=== PATIENT | male | born 1975 | race Caucasian/White ===

== ENCOUNTER 2017-07-30 02:58 | Inpatient (IN) | payer MEDICARE ==
[~2017-07-30] VITALS: Ht 182.9 cm; Wt 78.7 kg
[2017-07-30] MEDS ORDERED: cefTRIAXone 1GM/10ml IVPUSH 10 ML IV ONE (04:15)
[2017-07-30] MEDS ORDERED: SODIUM CHLORIDE 0.9% 1,000 ML IV ONE (04:15)
[2017-07-30 04:34] LABS: Basophils # (auto) 0 uL; Basophils % (auto) 0.6 % (0.0-2.0); Eosinophils # (auto) 0.3 uL; Eosinophils % (auto) 4.1 % (0.0-7.0); Hematocrit 35.9 % (41.0-53.0); Hemoglobin 12.1 g/dL (13.5-17.5); Lymphocytes # (auto) 1.7 uL; Mean Corpuscular Hgb Conc. 33.9 g/dL (32.0-36.0); Mean Corpuscular Volume 82.6 fL (80.0-100.0); Monocytes # (auto) 0.6 uL; Monocytes % (auto) 8.2 % (0.0-12.0); Neutrophils # (auto) 5.2 uL; Neutrophils % (auto) 66.1 % (37.0-80.0); Platelet Count (auto) 327 10^3/uL (140-450); Red Blood Cells 4.34 10^6/uL (4.5-5.90); Red Cell Distribution Width 15.1 % (11.8-14.3); White Blood Cell 7.9 10^3/uL (4.4-10.8)
[2017-07-30 04:52] LABS: Albumin 3.6 g/dL (3.4-5.0); BUN/Creatinine Ratio 22.2; Potassium 3.8 mmol/L (3.5-5.1)
[2017-07-30 04:55] LABS: Bilirubin, Total 0.4 mg/dL (0.2-1.0); Total Protein 7.3 g/dL (6.4-8.2)
[2017-07-30] MEDS ORDERED: CLINDAMYCIN 600MG IV 50 ML IV ONE (07:00)
[2017-07-30] MEDS ORDERED: ONDANSETRON HCL 4 MG/2 ML VIAL IV PRN (07:00)
[2017-07-30] MEDS ORDERED: ACETAMINOPHEN 500 MG TAB PO PRN (07:00)
[2017-07-30] MEDS: cefTRIAXone 1GM/10ml IVPUSH 10 ML IV SCH (10:44)
[2017-07-30 11:08] LABS: Urine Bacteria FEW /hpf (None Seen); Urine Blood Negative /uL (Negative); Urine Specific Gravity 1.017 (1.001-1.035); Urine WBC <1 /hpf (0 - 3)
[2017-07-30 11:16] LABS: Alcohol, Urine < 3.0 mg/dL (0-5); Amphetamine Screen, Urine POSITIVE (NEGATIVE); Barbiturate Scree,Urine NEGATIVE (NEGATIVE); Benzodiazephine Screen, Urine NEGATIVE (NEGATIVE); Cannabinoid Screen, Urine POSITIVE (NEGATIVE); Cocaine Screen, Urine NEGATIVE (NEGATIVE); Opiate Scree,Urine NEGATIVE (NEGATIVE); Phencyclidine Screen, Urine NEGATIVE (NEGATIVE)
[2017-07-30] MEDS: HYDROcodone-ACET 5/325MG TAB PO PRN (15:02)
[2017-07-30] MEDS: CLINDAMYCIN 600MG IV 50 ML IV SCH ×2 (15:02→21:38)
[2017-07-30 16:10] VITALS: BP 136/64
[2017-07-30 22:00] VITALS: BP 118/74
[2017-07-31] MEDS: CLINDAMYCIN 600MG IV 50 ML IV SCH ×3 (05:51→21:26)
[2017-07-31 05:57] VITALS: BP 121/86
[2017-07-31 06:34] LABS: Basophils # (auto) 0 uL; Basophils % (auto) 0.5 % (0.0-2.0); Eosinophils # (auto) 0.3 uL; Eosinophils % (auto) 2.9 % (0.0-7.0); Hematocrit 36.7 % (41.0-53.0); Hemoglobin 12.4 g/dL (13.5-17.5); Lymphocytes # (auto) 1.7 uL; Lymphocytes % (auto) 19.4 % (10.0-50.0); Mean Corpuscular Hemoglobin 28.3 pg (28.0-32.0); Mean Corpuscular Hgb Conc. 33.9 g/dL (32.0-36.0); Mean Corpuscular Volume 83.7 fL (80.0-100.0); Monocytes # (auto) 0.6 uL; Monocytes % (auto) 7.5 % (0.0-12.0); Neutrophils % (auto) 69.7 % (37.0-80.0); Platelet Count (auto) 325 10^3/uL (140-450); Red Blood Cells 4.39 10^6/uL (4.5-5.90); Red Cell Distribution Width 14.5 % (11.8-14.3); White Blood Cell 8.6 10^3/uL (4.4-10.8)
[2017-07-31 06:47] LABS: BUN/Creatinine Ratio 18.4; Potassium 4.6 mmol/L (3.5-5.1)
[2017-07-31] MEDS: HYDROcodone-ACET 5/325MG TAB PO PRN (08:58)
[2017-07-31] MEDS: cefTRIAXone 1GM/10ml IVPUSH 10 ML IV SCH (08:59)
[2017-07-31 09:00] VITALS: BP 124/76
[2017-07-31 13:00] VITALS: BP 123/75
[2017-07-31 17:00] VITALS: BP 109/67
[2017-07-31 22:16] VITALS: BP_SYST 109; BP_SYST 161; BP_DIAS 62; BP_DIAS 81
[2017-08-01] MEDS: HYDROcodone-ACET 5/325MG TAB PO PRN ×3 (02:24→18:31)
[2017-08-01 05:00] VITALS: BP 108/78
[2017-08-01] MEDS: CLINDAMYCIN 600MG IV 50 ML IV SCH ×3 (05:33→21:21)
[2017-08-01 09:00] VITALS: BP 122/60
[2017-08-01] MEDS: cefTRIAXone 1GM/10ml IVPUSH 10 ML IV SCH (09:38)
[2017-08-01] MEDS ORDERED: CLIN1CAP4 PO (11:25)
[2017-08-01 13:00] VITALS: BP 121/74
[2017-08-01 17:00] VITALS: BP 130/62
[2017-08-01 22:00] VITALS: BP 115/78
[2017-08-02 05:09] VITALS: BP 111/75
[2017-08-02] MEDS: CLINDAMYCIN 600MG IV 50 ML IV SCH ×2 (05:41→13:35)
[2017-08-02] MEDS: HYDROcodone-ACET 5/325MG TAB PO PRN ×2 (07:06→13:35)
[2017-08-02 09:00] VITALS: BP 129/81
[2017-08-02] MEDS: cefTRIAXone 1GM/10ml IVPUSH 10 ML IV SCH (10:00)
[2017-08-02 12:24] VITALS: BP 112/70
== END 2017-08-02 14:14 | DRG 603 ==
LOC: ER 03:04 → OVERFLOW 03:05 → CENTRAL 15:09
PROVIDERS: ADMIT Nurse Practitioner Family; ATTEND Internal Medicine
DX: L03.116 Cellulitis of left lower limb (principal); F12.10 Cannabis abuse, uncomplicated; S82.832A Other fracture of upper and lower end of left fibula, initial encounter for closed fracture; F15.10 Other stimulant abuse, uncomplicated; F17.210 Nicotine dependence, cigarettes, uncomplicated; Z59.0 Homelessness; Z91.19 Patient's noncompliance with other medical treatment and regimen; Z88.8 Allergy status to other drugs, medicaments and biological substances; Y93.89 Activity, other specified; Y92.89 Other specified places as the place of occurrence of the external cause; Y99.8 Other external cause status; Z71.6 Tobacco abuse counseling; V49.9XXA Car occupant (driver) (passenger) injured in unspecified traffic accident, initial encounter; S82.142D Displaced bicondylar fracture of left tibia, subsequent encounter for closed fracture with routine healing
CPT/HCPCS: 36415; 73562; 73590; 73630; 80048; 80053; 80307; 81001; 83605; 85025; 87040; 93971; 96361; 96365; 96366; 96375; 97116; 97163; 97530; J3490